=== PATIENT | female | born 1930 | race Caucasian/White ===

== ENCOUNTER 2019-06-19 07:25 | Observation (INO) | payer MEDICARE, BC ==
[~2019-06-19] VITALS: Ht 162.6 cm; Wt 67.6 kg
[~2019-06-19 07:25] MED LIST: ASPI-1265 PO; ATOR10TA70 PO; CHOL10002 PO; FURO-150 PO; LEVO100T9 PO; LOSA25TA96 PO; MULT1TAB74 PO; ONDA4TAB6 PO; SERT25TA5 PO
[2019-06-19 08:03] LABS: BASOPHILS % (AUTO) 1.1 % (0-1); EOSINOPHILS # (AUTO) 0.1 X10'3 (0-0.9); EOSINOPHILS % (AUTO) 2.7 % (0-6); HEMATOCRIT 36.6 % (35.0-45.0); HEMOGLOBIN 12.6 g/dl (12.0-16.0); LYMPHOCYTES # (AUTO) 0.7 X10'3 (1.1-4.8); LYMPHOCYTES % (AUTO) 16.7 % (21-51); MEAN CORPUSCULAR HEMOGLOBIN 32.6 PG (27.0-31.0); MEAN CORPUSCULAR HGB CONC 34.4 g/dL (33.0-36.5); MEAN CORPUSCULAR VOLUME 94.7 FL (78-98); MEAN PLATELET VOLUME 8.7 FL (7.4-10.4); MONOCYTES # (AUTO) 0.4 X10'3 (0-0.9); MONOCYTES % (AUTO) 8.2 % (2-12); NEUTROPHILS # (AUTO) 3.2 X10'3 (1.8-7.7); NEUTROPHILS % (AUTO) 71.3 % (42-75); PLATELET COUNT 195 X10'3 (140-440); RED BLOOD COUNT 3.87 X10'6 (4.20-5.60); RED CELL DISTRIBUTION WIDTH 12.5 % (11.5-14.5); WHITE BLOOD COUNT 4.5 X10'3 (4.5-11.0)
[2019-06-19 08:23] LABS: ALANINE AMINOTRANSFERASE 25 U/L (12-78); ALBUMIN 3.6 G/DL (3.4-5.0); ALBUMIN/GLOBULIN RATIO 1.1 (1.1-1.5); ALKALINE PHOSPHATASE 97 IU/L (46-116); ANION GAP 10 (8-16); ASPARTATE AMINO TRANSFERASE 28 U/L (10-37); BILIRUBIN,TOTAL 0.5 MG/DL (0.1-1.0); BLOOD UREA NITROGEN 11 MG/DL (7-18); BUN/CREATININE RATIO 15.3 (6.6-38.0); CALCIUM 9.2 MG/DL (8.5-10.1); CHLORIDE 94 MMOL/L (99-107); CREATININE 0.72 MG/DL (0.40-0.90); GLUCOSE 122 MG/DL (70-104); POTASSIUM 3.3 MMOL/L (3.5-5.1); SODIUM 132 MMOL/L (135-145); TOTAL CARBON DIOXIDE 28.2 MMOL/L (24-32); TOTAL PROTEIN 6.8 G/DL (6.4-8.2); eGFR 77 ML/MIN
[2019-06-19 08:25] LABS: MAGNESIUM 1.6 MG/DL (1.5-2.4)
[2019-06-19] MEDS ORDERED: nitroGLYCERIN 1gm ointment UD TP ONE (08:35)
[2019-06-19] MEDS ORDERED: magnesium hydroxide 30ml (MOM) UD suspension PO PRN (08:45)
[2019-06-19] MEDS ORDERED: HYDROcodone/acetaminophen 10/325mg tab PO PRN (08:45)
[2019-06-19] MEDS ORDERED: nitroGLYCERIN 0.4mg SUBLingual tab SL PRN (08:45)
[2019-06-19] MEDS ORDERED: HYDROcodone/acetaminophen 5mg/325mg tablet PO PRN (08:45)
[2019-06-19] MEDS ORDERED: acetaminophen 325mg tablet PO PRN ×2 (08:45)
[2019-06-19] MEDS ORDERED: ondansetron/PF 4mg/2ml inj IV PRN (08:45)
[2019-06-19] MEDS ORDERED: morphine 2 MG/ML inj. syringe IV PRN ×2 (08:45)
[2019-06-19] MEDS ORDERED: morphine 2 MG/ML inj. syringe IV ONE (09:15)
--- NOTE | 2019-06-19 09:15 | NUR ---
DR STEEL WAS AT BEDSIDE AND PT HAVING CP, RECEIVED VERBAL ORDER FROM DR STEEL FOR 2 MG IV MORPHINE ONCE NOW AND HE WILL RETURN UPSTAIRS TO PUT ADMIT ORDERS IN.
[2019-06-19] MEDS ORDERED: LOSA1TAB41 PO (09:19)
[2019-06-19] MEDS: mag hydrox/Alum hydrox/simeth 30ml oral suspension PO PRN ×2 (09:33→21:16)
[2019-06-19 09:35] LABS: HEMOGLOBIN A1C 5.1 % (4.5-6.2)
[2019-06-19 10:20] VITALS: BP 156/72
--- NOTE | 2019-06-19 10:20 | NUR ---
Received report from ED nurse. Patient arrived on unit. Orientated to the room. call light given. Patient is having intermittent chest pain. Vital signs: BP:156/72 HR:93 O2 sat:100 at Room air; temp: 98.3.
[2019-06-19 11:00] VITALS: BP 152/60
--- NOTE | 2019-06-19 12:40 | NUR ---
Paged Dr. mayfield PAGER ID: [phone] MESSAGE: [id number] Rachelle Khoury. K 3.3 would you like to to put her on replacement protocol? Alicia peoples [phone]
--- NOTE | 2019-06-19 14:52 | NUR ---
Paged dr mayfield PAGER ID: [phone] MESSAGE: [phone] Rachelle Khoury; fyi patient still has the same midsternal pain not any worse not better. will offer her morphine. Alicia [phone]
[2019-06-19 15:00] VITALS: BP 136/54
[2019-06-19 18:00] VITALS: BP 154/65
--- NOTE | 2019-06-19 18:35 | NUR ---
Problems reprioritized. Patient report given, questions answered & plan of care reviewed with Sarah WHITEHEAD.
[2019-06-19] MEDS ORDERED: magnesium Cl slow-release 64mg tablet PO PRN (19:20)
[2019-06-19] MEDS ORDERED: potassium CL 10mEq/100ml bag 100 ML IV PRN (19:20)
[2019-06-19] MEDS ORDERED: magnesium 4gm in 100ml NS 100 ML IV PRN (19:20)
[2019-06-19] MEDS ORDERED: potassium Cl 20 mEq SR tablet PO PRN (19:20)
[2019-06-19] MEDS: atorvastatin 20mg tablet PO SCH (21:13)
[2019-06-19] MEDS: aspirin 81mg tab.chew PO SCH (21:13)
[2019-06-19] MEDS: potassium Cl 20 mEq SR tablet PO PRN (21:15)
[2019-06-19 22:00] VITALS: BP 127/54
[2019-06-20] VITALS (17 sets, daily range): BP systolic 124–203; BP diastolic 51–78
[2019-06-20] MEDS: potassium Cl 20 mEq SR tablet PO PRN ×2 (03:58→07:30)
[2019-06-20 06:21] LABS: ALBUMIN 3.2 G/DL (3.4-5.0); ANION GAP 5 (8-16); BLOOD UREA NITROGEN 9 MG/DL (7-18); CALCIUM 8.9 MG/DL (8.5-10.1); CHLORIDE 96 MMOL/L (99-107); CHOL/HDL RATIO 1.7 (0.00-4.99); CHOLESTEROL 147 MG/DL (0-200); CREATININE 0.69 MG/DL (0.40-0.90); GLUCOSE 101 MG/DL (70-104); HDL CHOLESTEROL 85 MG/DL (35-60); LDL CHOLESTEROL 52 MG/DL (50-100); POTASSIUM 3.7 MMOL/L (3.5-5.1); SODIUM 131 MMOL/L (135-145); TOTAL CARBON DIOXIDE 30.2 MMOL/L (24-32); TRIGLYCERIDES 53 MG/DL (20-135); eGFR 80 ML/MIN
[2019-06-20 06:28] LABS: BASOPHILS % (AUTO) 0.5 % (0-1); EOSINOPHILS # (AUTO) 0.1 X10'3 (0-0.9); EOSINOPHILS % (AUTO) 1.5 % (0-6); HEMOGLOBIN 12.2 g/dl (12.0-16.0); LYMPHOCYTES # (AUTO) 0.8 X10'3 (1.1-4.8); LYMPHOCYTES % (AUTO) 11.2 % (21-51); MEAN CORPUSCULAR HEMOGLOBIN 32.7 PG (27.0-31.0); MEAN CORPUSCULAR VOLUME 93.5 FL (78-98); MEAN PLATELET VOLUME 8.9 FL (7.4-10.4); MONOCYTES # (AUTO) 0.7 X10'3 (0-0.9); NEUTROPHILS # (AUTO) 5.2 X10'3 (1.8-7.7); NEUTROPHILS % (AUTO) 76.8 % (42-75); PLATELET COUNT 195 X10'3 (140-440); RED BLOOD COUNT 3.75 X10'6 (4.20-5.60); RED CELL DISTRIBUTION WIDTH 12.6 % (11.5-14.5); WHITE BLOOD COUNT 6.8 X10'3 (4.5-11.0)
--- NOTE | 2019-06-20 06:33 | NUR ---
Patient in room PCU 3014. I have received report from Sarah WHITEHEAD and had the opportunity to ask questions and assume patient care.
[2019-06-20] MEDS: metoprolol tartrate 25mg tablet PO SCH ×2 (07:30→20:17)
[2019-06-20] MEDS: furosemide 20MG tablet PO SCH (07:31)
[2019-06-20] MEDS: multivitamins, therapeutics tablet PO SCH (07:31)
[2019-06-20] MEDS: levoTHYROXINE 100mcg tablet PO SCH (07:31)
[2019-06-20] MEDS ORDERED: non-formulary drug (Multivitamins 1 TABLET) PO SCH (08:00)
[2019-06-20] MEDS ORDERED: losartan 50mg tablet PO SCH (08:00)
[2019-06-20] MEDS ORDERED: HYDROchlorothiazide 12.5mg capsule PO SCH (08:00)
[2019-06-20] MEDS ORDERED: non-formulary drug (Losartan/Hydrochlorothiazide (Losartan-Hctz 100-12.5 Mg Tab) 1 TAB) PO SCH (08:00)
[2019-06-20 08:36] LABS: TROPONIN I 0.39 NG/ML (0.0-0.05)
--- NOTE | 2019-06-20 08:44 | NUR ---
patient will be transferring to ACCE unit. Called Allegra and gave report
[2019-06-20] MEDS ORDERED: enoxaparin 60mg/0.6ml syringe SUBCUT ONE (08:55)
--- NOTE | 2019-06-20 09:10 | NUR ---
Patient transported by wheelchair to ACCE unit
--- NOTE | 2019-06-20 09:26 | NUR ---
Pt. arrived from U. Pt. does not have complaints. Pt. is educated on going to the Cathlab and the plan for the rest of the day.
--- NOTE | 2019-06-20 18:25 | NUR ---
Problems reprioritized. Patient report given, questions answered & plan of care reviewed with Guadalupe WHITEHEAD and Renetta WHITEHEAD.
--- NOTE | 2019-06-20 18:26 | NUR ---
Orienteer documentation: I have reviewed and agree with all interventions, assessments performed and documented by Allegra WHITEHEAD.
--- NOTE | 2019-06-20 18:30 | NUR ---
Patient in room MED 313. I have received report from VENTURA Morales and had the opportunity to ask questions and assume patient care.
[2019-06-20] MEDS ORDERED: fentaNYL/PF 50MCG/1 ML 2ML syringe ONE (18:31)
[2019-06-20] MEDS ORDERED: midazolam 2 mg/2 ml injection ONE (18:31)
--- NOTE | 2019-06-20 18:35 | NUR ---
Patient left the floor in a wheelchair with the refuse laborer staff nurse. She is alert and oriented and in no distress.
--- NOTE | 2019-06-20 19:05 | NUR ---
Received report from VENTURA Casas in the microbiological lab technician. Reports that patient had the cath with a right groin approach. 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 Patient received Versed and Fentanyl and Manual hold was used to the right groin for achieve hemostasis. Reported that patient was having SBP of 150s and 160s.
--- NOTE | 2019-06-20 19:15 | NUR ---
Patient arrived back to the ACCE unit and is stable. Right groin has no hematoma and peripheral pulses intact. Vitals are WNL SBO at 134. Will continue to monitor patient for duration of shift.
[2019-06-20] MEDS ORDERED: OXAZEpam 15mg capsule PO PRN (19:40)
[2019-06-20] MEDS ORDERED: proCHLORperazine 10 MG/2 ml inj IV PRN (19:40)
[2019-06-20] MEDS: aspirin 81mg tab.chew PO SCH (20:18)
[2019-06-20] MEDS: atorvastatin 20mg tablet PO SCH (20:18)
--- NOTE | 2019-06-20 22:33 | NUR ---
PAGER ID: [phone] MESSAGE: Dr. Mcdonough, pt: Rachelle Khoury in rm 313 on ACCE pt has become hypertensive with a SBP at 203 currently. Please advise. VENTURA Blake [id number]
--- NOTE | 2019-06-20 22:45 | NUR ---
Called Dr. Mcdonough, and reported the high SBP and he gave orders for Clonodine 0.1mg po. Will give the medication as ordered and continue to monitor for duration of shift.
[2019-06-20] MEDS ORDERED: cloNIDine 0.1 mg tablet PO ONE (22:55)
--- NOTE | 2019-06-21 00:02 | NUR ---
Patient Systolic blood pressure went up to 220, Charge nurse, VENTURA Mak contacted Dr. Mcdonough who gave the order to give the patient Clonodine 0.1 mg po. We repeated the blood pressure just prior to pulling the medication and her SBO went back down to 154. We decided to wait to give the Clonodine at this time. I will continue to monitor her BP closely for the duration of this shift.
[2019-06-21] MEDS ORDERED: cloNIDine 0.1 mg tablet PO ONE (00:05)
[2019-06-21 02:00] VITALS: BP 145/55
[2019-06-21 05:13] LABS: BASOPHILS % (AUTO) 0.5 % (0-1); EOSINOPHILS # (AUTO) 0.1 X10'3 (0-0.9); EOSINOPHILS % (AUTO) 0.9 % (0-6); HEMATOCRIT 37.4 % (35.0-45.0); HEMOGLOBIN 12.8 g/dl (12.0-16.0); LYMPHOCYTES # (AUTO) 0.7 X10'3 (1.1-4.8); LYMPHOCYTES % (AUTO) 8.7 % (21-51); MEAN CORPUSCULAR HEMOGLOBIN 32.4 PG (27.0-31.0); MEAN CORPUSCULAR HGB CONC 34.1 g/dL (33.0-36.5); MEAN PLATELET VOLUME 8.9 FL (7.4-10.4); MONOCYTES # (AUTO) 0.5 X10'3 (0-0.9); NEUTROPHILS # (AUTO) 6.4 X10'3 (1.8-7.7); NEUTROPHILS % (AUTO) 82.9 % (42-75); PLATELET COUNT 202 X10'3 (140-440); RED BLOOD COUNT 3.94 X10'6 (4.20-5.60); RED CELL DISTRIBUTION WIDTH 12.8 % (11.5-14.5); WHITE BLOOD COUNT 7.7 X10'3 (4.5-11.0)
[2019-06-21 05:34] LABS: ALBUMIN 3.3 G/DL (3.4-5.0); ANION GAP 8 (8-16); BLOOD UREA NITROGEN 11 MG/DL (7-18); CALCIUM 9.2 MG/DL (8.5-10.1); CHLORIDE 96 MMOL/L (99-107); CHOL/HDL RATIO 1.6 (0.00-4.99); CHOLESTEROL 148 MG/DL (0-200); CREATININE 0.61 MG/DL (0.40-0.90); GLUCOSE 127 MG/DL (70-104); HDL CHOLESTEROL 94 MG/DL (35-60); LDL CHOLESTEROL 50 MG/DL (50-100); POTASSIUM 3.6 MMOL/L (3.5-5.1); SODIUM 130 MMOL/L (135-145); TOTAL CARBON DIOXIDE 26.3 MMOL/L (24-32); TRIGLYCERIDES 60 MG/DL (20-135); eGFR > 90 ML/MIN
[2019-06-21 06:00] VITALS: BP 92/46
--- NOTE | 2019-06-21 06:26 | NUR ---
Problems reprioritized. Patient report given, questions answered & plan of care reviewed with VENTURA Schafer.
--- NOTE | 2019-06-21 06:26 | NUR ---
Patient in room MED 313. I have received report from VENTURA MATHEWS and had the opportunity to ask questions and assume patient care.
[2019-06-21] MEDS: levoTHYROXINE 100mcg tablet PO SCH (07:18)
[2019-06-21] MEDS: multivitamins, therapeutics tablet PO SCH (07:18)
[2019-06-21] MEDS: furosemide 20MG tablet PO SCH (07:18)
[2019-06-21 07:30] VITALS: BP 133/41
[2019-06-21] MEDS ORDERED: ATOR10TA70 PO (09:20)
--- NOTE | 2019-06-21 11:11 | NUR ---
pt discharged per dr Mcdonough. pt in stable condition. all discharge instructions provided. IV removed, tip intact. pt escorted out via wheelchair. new prescription provided via [facility] bedside.
--- NOTE | 2019-06-21 11:41 | NUR ---
Orientee documentation: I have reviewed and agree with all interventions, assessments performed and documented by Charlene WHITEHEAD. [facility]ee Medication Administration: For this medication-pass time frame, all medication were reviewed, dispensed, administered and documented per hospital policy by Charlene WHITEHEAD.
[2019-06-21] MEDS ORDERED: losartan 50mg tablet PO SCH (21:00)
== END 2019-06-21 11:11 | disposition home or self-care (01) ==
LOC: ER 07:26 → PCU 3S 10:14 → MED 3N 06-20 09:10
PROVIDERS: ADMIT Internal Medicine; ATTEND Internal Medicine
DX: I21.4 Non-ST elevation (NSTEMI) myocardial infarction (principal); I25.110 Atherosclerotic heart disease of native coronary artery with unstable angina pectoris; I10 Essential (primary) hypertension; E78.5 Hyperlipidemia, unspecified; E03.9 Hypothyroidism, unspecified; I25.2 Old myocardial infarction; J44.9 Chronic obstructive pulmonary disease, unspecified; Z95.1 Presence of aortocoronary bypass graft; Z88.0 Allergy status to penicillin; Z87.442 Personal history of urinary calculi; Z87.891 Personal history of nicotine dependence; Z79.82 Long term (current) use of aspirin; Z86.73 Personal history of transient ischemic attack (TIA), and cerebral infarction without residual deficits
CPT/HCPCS: 36415; 71045; 80048; 80053; 80061; 83036; 83735; 83880; 84484; 85025; 85610; 87081; 93005; 93306; 93459; 96372; 96374; 96375; 99284; C1769; C1894; G0378; J2250; J2270; J2405; J3010; 99152; A4620; A6258; J1650

== ENCOUNTER 2020-12-25 13:58 | Emergency (ER) | payer MEDICARE, BC ==
[~2020-12-25] VITALS: Ht 160 cm; Wt 67.3 kg
[~2020-12-25 13:58] MED LIST changes: +ASPI-1071 PO; -ASPI-1265 PO; -ATOR10TA70 PO; +ATOR20TA66 PO; -CHOL10002 PO; -FURO-150 PO; +FURO20TA4 PO; +LOSA1TAB41 PO; -LOSA25TA96 PO; -MULT1TAB74 PO; -ONDA4TAB6 PO; -SERT25TA5 PO
[2020-12-25 16:38] VITALS: BP 178/77
== END 2020-12-25 16:40 | disposition home or self-care (01) ==
LOC: ER 13:59
DX: S00.83XA Contusion of other part of head, initial encounter (principal); M25.522 Pain in left elbow; I25.10 Atherosclerotic heart disease of native coronary artery without angina pectoris; E78.00 Pure hypercholesterolemia, unspecified; I10 Essential (primary) hypertension; I25.2 Old myocardial infarction; E03.9 Hypothyroidism, unspecified; Z98.890 Other specified postprocedural states; Z60.2 Problems related to living alone; Z88.0 Allergy status to penicillin; Z88.2 Allergy status to sulfonamides; Z79.82 Long term (current) use of aspirin; Z79.899 Other long term (current) drug therapy; W01.0XXA Fall on same level from slipping, tripping and stumbling without subsequent striking against object, initial encounter; Y93.89 Activity, other specified; Y92.89 Other specified places as the place of occurrence of the external cause; Y99.8 Other external cause status
CPT/HCPCS: 70450; 99284